=== PATIENT | female | born 1985 | race Caucasian/White ===

== ENCOUNTER 2019-06-06 11:34 | Emergency (ER) | payer OTHER ==
[~2019-06-06] VITALS: Ht 157.5 cm; Wt 77.1 kg
[~2019-06-06 11:34] MED LIST: NITR-58 PO; OMEP20CA9 PO; ONDA4TAB35 PO; PHEN-537 PO
[2019-06-06 11:41] VITALS: Ht 157.5 cm; Wt 77.1 kg
[2019-06-06] MEDS ORDERED: ACETAMINOPHEN 500 MG TAB PO STA (12:31)
[2019-06-06] MEDS ORDERED: ONDANSETRON (ODT) 4 MG TAB ODT STA (12:31)
--- NOTE | 2019-06-06 12:37 | ERD ---
ER Documentation Chief Complaint Chief Complaint RIGHT LQ ABD. PAIN WITH NAUSEA FOR 3 DAYS. SENT FROM FOR EVAL. HPI This is a 33-year-old female patient who presents emergency room with complaint of right lower quadrant pain x3 days. + Vomiting, + diarrhea, + dysuria, + nausea, - fever. LMP February 07, patient states that she is on Depo-Provera. No other significant medical history. ROS All systems reviewed and are negative except as per history of present illness. Medications Home Meds Active Scripts Acetaminophen* (Tylophen*) 500 Mg Capsule, 2 CAP PO Q8H PRN for PAIN AND OR ELEVATED TEMP for 10 Days, #20 CAP Prov:BRADLEY SHAH NP 06/06/19 Ibuprofen* (Motrin*) 600 Mg Tab, 600 MG PO Q6 for 10 Days, #30 TAB Prov:BRADLEY SHAH NP 06/06/19 Ondansetron (Ondansetron Odt) 4 Mg Tab.rapdis, 4 MG PO Q6H PRN for NAUSEA AND/OR VOMITING for 5 Days, #10 TAB Prov:BRADLEY SHAH NP 06/06/19 Omeprazole* (Prilosec*) 20 Mg Capsule.dr, 20 MG PO BID for 10 Days, CAP Prov:BESSIE STINSON [employer]. [employer] 04/12/16 Ondansetron Hcl* (Zofran* ODT) 4 mg -ODT Tab.disper, 4 MG PO Q6 PRN for NAUSEA AND/OR VOMITING, #10 TAB Prov:BESSIE STINSON [employer]. [employer] 04/12/16 Phenazopyridine Hcl* (Pyridium*) 100 Mg Tab, 100 MG PO TID PRN for URINARY PAIN for 3 Days, #8 TAB Prov:BESSIE STINSON [employer]. [employer] 04/12/16 Nitrofurantoin Monohyd Macrocr* (Macrobid*) 100 Mg Capsr, 100 MG PO BID for 5 Days, CAP Prov:BESSIE STINSON [employer]. [employer] 04/12/16 Allergies Allergies: Coded Allergies: No Known Allergy (Unverified , 04/12/16) PMhx/Soc Medical and Surgical Hx: pt denies Medical Hx History of Surgery: No Anesthesia Reaction: No Hx Neurological Disorder: No Hx Respiratory Disorders: No Hx Cardiac Disorders: No Hx Psychiatric Problems: No Hx Miscellaneous Medical Probl: No Hx Alcohol Use: No Hx Substance Use: No Hx Tobacco Use: No Smoking Status: Never smoker FmHx Family History: No diabetes, No coronary disease, No other Physical Exam Vitals Vital Signs Date Temp Pulse Resp B/P (MAP) Pulse Ox O2 O2 Flow FiO2 Time Delivery Rate 06/06/19 98.2 54 16 108/68 98 Room Air 15:08 (81) 06/06/19 97.9 56 18 118/69 100 11:41 (85) Physical Exam Const: No acute distress Head: Atraumatic Eyes: Normal Conjunctiva ENT: Normal External Ears, Nose and Mouth. Neck: Full range of motion. No meningismus. Resp: Clear to auscultation bilaterally Cardio: Regular rate and rhythm, no murmurs Abd: Soft, nonrebound tenderness at RLQ, +psoas, non distended. Normal bowel sounds, no bruising Skin: No petechiae or rashes Back: No midline or flank tenderness, no CVT Neur: Awake and alert, clear speech, steady gait Psych: Normal Mood and Affect Result Diagram: 06/06/19 1240 06/06/19 1240 Results 24 hrs Laboratory Tests Test 06/06/19 12:40 White Blood Count 8.6 10^3/ul Red Blood Count 5.08 10^6/ul Hemoglobin 13.9 g/dl Hematocrit 43.3 % Mean Corpuscular Volume 85.2 fl Mean Corpuscular Hemoglobin 27.4 pg Mean Corpuscular Hemoglobin Concent 32.1 g/dl Red Cell Distribution Width 14.2 % Platelet Count 269 10^3/UL Mean Platelet Volume 11.2 fl Immature Granulocytes % 0.200 % Neutrophils % 57.2 % Lymphocytes % 34.0 % Monocytes % 7.6 % Eosinophils % 0.7 % Basophils % 0.3 % Nucleated Red Blood Cells % 0.0 /100WBC Immature Granulocytes # 0.020 10^3/ul Neutrophils # 4.9 10^3/ul Lymphocytes # 2.9 10^3/ul Monocytes # 0.7 10^3/ul Eosinophils # 0.1 10^3/ul Basophils # 0.0 10^3/ul Nucleated Red Blood Cells # 0.0 10^3/ul Urine Color STRAW Urine Clarity CLEAR Urine pH 6.0 Urine Specific [place] 1.006 Urine Ketones NEGATIVE mg/dL Urine Nitrite NEGATIVE mg/dL Urine Bilirubin NEGATIVE mg/dL Urine Urobilinogen NEGATIVE mg/dL Urine Leukocyte Esterase NEGATIVE Sundar/ul Urine Hemoglobin NEGATIVE mg/dL Urine Glucose NEGATIVE mg/dL Urine Total Protein NEGATIVE mg/dl Sodium Level 146 mmol/L Potassium Level 4.3 mmol/L Chloride Level 105 mmol/L Carbon Dioxide Level 30 mmol/L Anion Gap 11 Blood Urea Nitrogen 9 mg/dl Creatinine 0.70 mg/dl Est Glomerular Filtrat Rate mL/min > 60 mL/min Glucose Level 88 mg/dl Calcium Level 10.0 mg/dl Total Bilirubin 0.7 mg/dl Direct Bilirubin 0.00 mg/dl Indirect Bilirubin 0.7 mg/dl Aspartate Amino Transf (AST/SGOT) 24 IU/L Alanine Aminotransferase (ALT/SGPT) 19 IU/L Alkaline Phosphatase 76 IU/L Total Protein 8.9 g/dl Albumin 4.9 g/dl Globulin 4.00 g/dl Albumin/Globulin Ratio 1.22 Lipase 34 U/L Beta HCG, Quantitative < 2.4 mIU/ml Current Medications Medications Dose Sig/Judy Start Time Status Last (Trade) Ordered Route PRN Stop Time Admin Dose Reason Admin Ondansetron 4 mg ONCE STAT 06/06/19 DC 06/06/19 HCl (Zofran ODT 12:31 12:40 Odt) 06/06/19 12:35 1,000 mg ONCE STAT 06/06/19 DC 06/06/19 Acetaminophen PO 12:31 12:40 (Tylenol 06/06/19 12:35 Tab) Procedures/MDM PROCEDURES/MDM DIAGNOSTIC IMAGING: Read by radiologist. CT Abd/Pelvis IMPRESSION: 1. Punctate nonobstructing calcification within the mid right kidney. No hydronephrosis. 2. Multiple nonspecific shotty sub centimeter lymph nodes within the right lower quadrant and retroperitoneum. 3.There are bilateral adnexal hypodense lesions which are likely cysts. Consider follow-up pelvic ultrasound. Free fluid in the the pelvis likely physiologic. 4. No bowel obstruction. LAB INTERPRETATION: No leukocytosis, no anemia, no electrolyte disturbance, no nephropathy, no tra nsaminitis, normal lipase. UA negative for UTI or . -Medications: Zofran, Tylenol Patient tolerated medication well with no adverse reactions. Patient reported improvement in pain. MDM: This is a 33-year-old female patient presents emergency room with complaint of right lower quadrant pain with nausea and vomiting and diarrhea x3 days. Patient went to her PMD today who referred her to this ER to rule out appendicitis. Lab work-up negative for occult infection, electrolyte distur bance, anemia, pancreatitis, hepatitis. CT abdomen pelvis negative for appendicitis or other intra-abdominal abnormality. Most likely patient is experiencing inflammation of mesenteric adenitis and possible viral infection. The patient presents with abdominal pain without definite explanation found on evaluation today. However, there are no signs of peritonitis or other life- threatening or serious etiology. The patient appears stable for discharge and has been instructed to return immediately if the symptoms worsen in any way, or in 8-12 hours if not improved for re-evaluation. DISPOSITION and PLAN: RX: Zofran, ibuprofen, Tylenol The patient has been discharge home to follow-up with community physician. Departure Diagnosis: Primary Impression: Abdominal pain Abdominal location: right lower quadrant Qualified Codes: R10.31 - Right lower quadrant pain Condition: Stable BRADLEY SHAH NP Jun 06, 2019 12:37
[2019-06-06] MEDS ORDERED: ONDA4TAB14 PO (14:56)
[2019-06-06] MEDS ORDERED: ACET500C5 PO (14:56)
[2019-06-06] MEDS ORDERED: IBUP-1542 PO (14:56)
[2019-06-06 15:08] VITALS: BP 108/68; PULSE 54; RESP 16
== END 2019-06-06 15:09 | disposition home or self-care (01) ==
LOC: FTE 11:34
DX: R10.31 Right lower quadrant pain (principal); R10.2 Pelvic and perineal pain; R11.2 Nausea with vomiting, unspecified
CPT/HCPCS: 36415; 74176; 80053; 81003; 83690; 84702; 85025; Z7502; Z7610